=== PATIENT | male | born 1950 | race Caucasian/White ===

== ENCOUNTER → 2018-02-26 | Outpatient (CLI) | payer MEDICARE ==
[~2018-02-26] MED LIST: ASPI-496 PO; ATOR40TA PO; AZIT250T89 PO; CARV6.2512 PO; FURO-92 PO; HYDR-3240 PO; LISI-167 PO; LISI40TA PO; LOSA25TA2 PO; METH4TAB7 PO; METO-93 PO; PANT40TA3 PO; POTA20TA14 PO; SIMV40TA3 PO; SPIR25TA PO
== END | disposition home or self-care (01) ==
LOC: CFH 12:35
PROVIDERS: ATTEND Internal Medicine
DX: Z12.2 Encounter for screening for malignant neoplasm of respiratory organs (principal); I25.10 Atherosclerotic heart disease of native coronary artery without angina pectoris; R91.1 Solitary pulmonary nodule; K80.20 Calculus of gallbladder without cholecystitis without obstruction; J84.10 Pulmonary fibrosis, unspecified; F17.210 Nicotine dependence, cigarettes, uncomplicated
CPT/HCPCS: G0297

== ENCOUNTER → 2021-01-14 | Outpatient (CLI) | payer MEDICARE ==
[~2021-01-14] MED LIST changes: +ALLO300T PO; +ASPI81TA45 PO; +ATOR40TA78 PO; +CALC60CR2 TP; +CLOB15OI TP; +CLOP75TA52 PO; +GABA300C PO; +HYDR-2214 PO; -HYDR-3240 PO; -LISI40TA PO; +LISI40TA9 PO; +LISI5TAB7 PO; +METF500T17 PO; +PANT40TA6 PO; +POTA20TA89 PO; +SIMV40TA20 PO; -SIMV40TA3 PO; +UMEC1DIS INH
[2021-01-14 14:28] LABS: BASOPHILS % (AUTO) 0 % (0-1); EOSINOPHILS % (AUTO) 2 % (1-7); LYMPHOCYTES % (AUTO) 19 % (22-44); MEAN CORPUSCULAR HGB CONC 33.6 g/dL (33.2-36.2); MEAN PLATELET VOLUME 9.5 fL (7.4-10.4); MONOCYTES % (AUTO) 9 % (2-9); NEUTROPHILS % (AUTO) 70 % (42-75); PLATELET COUNT 208 x10^3/uL (130-400); RED BLOOD COUNT 4.95 x10^6/uL (4.38-5.82); RED CELL DISTRIBUTION WIDTH 13.2 % (9.4-14.8)
[2021-01-14 14:34] LABS: ALANINE AMINOTRANSFERASE 22 U/L (12-78); ALBUMIN 3.4 g/dL (3.4-5.0); ANION GAP 6 mmol/L (5-15); CHLORIDE 105 mmol/L (98-107); CREATININE 1.07 mg/dL (0.7-1.3)
[2021-01-14 14:37] LABS: ALKALINE PHOSPHATASE 95 U/L (45-117); BILIRUBIN,TOTAL 0.6 mg/dL (0.2-1.0); TOTAL PROTEIN 6.9 g/dL (6.4-8.2)
== END | disposition home or self-care (01) ==
LOC: STAR 13:04
PROVIDERS: ATTEND Urology
DX: Z01.818 Encounter for other preprocedural examination (principal); Z20.822 Contact with and (suspected) exposure to COVID-19; R00.0 Tachycardia, unspecified
CPT/HCPCS: 36415; 80053; 85025; 93005; U0003; U0005

== ENCOUNTER → 2021-04-13 | Outpatient (CLI) | payer MEDICARE | END | disposition home or self-care (01) | LOC: CFH 13:37 | PROVIDERS: ATTEND Registered Nurse | DX: Z12.2 Encounter for screening for malignant neoplasm of respiratory organs (principal); J43.9 Emphysema, unspecified; J84.10 Pulmonary fibrosis, unspecified; F17.210 Nicotine dependence, cigarettes, uncomplicated; R91.1 Solitary pulmonary nodule ==